=== PATIENT | female | born 1950 | race Native Hawaiian/Other Pacific Islander ===

== ENCOUNTER 2019-05-12 17:00 | Inpatient (IN) | payer OTHER ==
[~2019-05-12] VITALS: Ht 152.4 cm; Wt 63.6 kg
[~2019-05-12 17:00] MED LIST: ASCO500T18 PO; ASPIRIN ADULT L81 M1 PO; ASPIRIN325 M1 PO; BACLOFEN10 MG PO; BISACODYL LAXAT10 MG RE; BISACODYL5 M1 PO; CLOP75TA2 PO; CRANBERRY450 MG PO; DAILY-VITE1 TAB PO; ESCI10TA PO; FENT100D TD; GUIATUSS PO; HYDR10TA47 PO; IPRASOL5 IN; KP FOLIC ACID1 MG PO; LAXATIVE1 TAB PO; MIRALAX3350 N1 PO; NITR100C56 PO; ONDA4TAB3 PO; OXYGEN NAS; PROM25IN5 IM; RISP0.25 PO; ROBAFEN100 MG/5 M PO; SENNA LAX8.6 MG PO; TRIA0.1C19 TOP; ZANTAC300 MG PO; ZINC SULFATE220 MG PO; [UNRECOGNIZED DRUG - SUPPLY]
[2019-05-12 19:00] VITALS: BP 99/58
[2019-05-12 20:00] VITALS: BP 112/70; TEMP 97.6
[2019-05-12 21:00] VITALS: BP 102/61
[2019-05-12 22:00] VITALS: BP 101/55
[2019-05-12 22:23] VITALS: BP 146/79; TEMP 97.6; Ht 152.4 cm; Wt 63.6 kg
[2019-05-12 23:00] VITALS: BP 94/62
[2019-05-13] VITALS (25 sets, daily range): BP systolic 70–188; BP diastolic 41–126; TEMP 97.3–99.2
[2019-05-13 05:19] LABS: PLATELET COUNT 315 K/uL (152-353)
[2019-05-13 05:35] LABS: POTASSIUM 2.8 mmol/L (3.6-5.2)
[2019-05-13 11:51] LABS: PARTIAL THROMBOPLASTIN TIME 29.1 SECONDS (24.5-33.6)
[2019-05-13] MEDS ORDERED: NITR100C56 PO (12:52)
[2019-05-13] MEDS ORDERED: ERTAPENEM SODIUM IM (13:04)
[2019-05-13] MEDS ORDERED: MIRALAX3350 N1 PO (13:11)
[2019-05-13] MEDS ORDERED: ABILIFY MYCITE10 MG PO (13:15)
[2019-05-13 16:02] LABS: POTASSIUM 3.6 mmol/L (3.6-5.2); SODIUM 147 mmol/L (136-145)
[2019-05-14] VITALS (24 sets, daily range): BP systolic 77–146; BP diastolic 39–100; TEMP 96.4–98.3
[2019-05-14 05:37] LABS: PLATELET COUNT 243 K/uL (152-353)
[2019-05-14 05:51] LABS: POTASSIUM 2.7 mmol/L (3.6-5.2)
[2019-05-15] VITALS (12 sets, daily range): BP systolic 90–179; BP diastolic 48–89; TEMP 97.4–98.2
[2019-05-15 13:59] LABS: PLATELET COUNT 273 K/uL (152-353)
[2019-05-15 14:04] LABS: POTASSIUM 3.1 mmol/L (3.6-5.2)
== END 2019-05-15 16:20 | disposition other institution (70) | DRG 871 ==
LOC: ICU 17:00
PROVIDERS: ADMIT Family Medicine
PROC: 02HV33Z Insertion of Infusion Device into Superior Vena Cava, Percutaneous Approach (ICD-10-PCS; principal; 2019-05-14)
DX: A41.89 Other specified sepsis (principal); J18.8 Other pneumonia, unspecified organism; N39.0 Urinary tract infection, site not specified; A04.8 Other specified bacterial intestinal infections; E87.0 Hyperosmolality and hypernatremia; E87.2 Acidosis; M86.68 Other chronic osteomyelitis, other site; N17.8 Other acute kidney failure; N18.4 Chronic kidney disease, stage 4 (severe); B96.5 Pseudomonas (aeruginosa) (mallei) (pseudomallei) as the cause of diseases classified elsewhere; I95.89 Other hypotension; R53.83 Other fatigue; E87.6 Hypokalemia; E78.00 Pure hypercholesterolemia, unspecified; E86.0 Dehydration; D72.828 Other elevated white blood cell count; I12.9 Hypertensive chronic kidney disease with stage 1 through stage 4 chronic kidney disease, or unspecified chronic kidney disease
CPT/HCPCS: 36415; 80053; 80061; 82550; 83605; 83735; 83880; 84132; 84484; 85027; 85610; 85730; 86318; 86480; 93005; 94640; 94664; 94760; C1751; J0360; J1642; J1940; J1956; J2060; J2185; J2270; J2405; J2765; J3370; J3480; J3490